=== PATIENT | male | born 1980 | race Caucasian/White ===

== ENCOUNTER 2017-08-09 05:45 | Day surgery (SDC) | payer BC ==
[~2017-08-09] VITALS: Ht 182.9 cm; Wt 115.7 kg
[2017-08-09] MEDS ORDERED: SUCCINYLCHOLINE CHLORIDE 20 MG/ML(QUELICIN) IVP ONE (07:10)
[2017-08-09] MEDS ORDERED: ePHEDrine sulfate 50 MG/ML VIAL IVP ONE (07:10)
[2017-08-09] MEDS ORDERED: ROCURONIUM BROMIDE 10 MG/ML (ZEMURON) IV ONE (07:10)
[2017-08-09] MEDS ORDERED: OXYMETAZOLINE HCL 0.05% NASAL SPRAY NS ONE (07:10)
[2017-08-09] MEDS ORDERED: NEOSTIGMINE METHYLSULFATE 1 MG/ML, 10 ML VIAL IVP ONE (07:10)
[2017-08-09] MEDS ORDERED: SEVOFLURANE 15 MIN GAS INH ONE (07:10)
[2017-08-09] MEDS ORDERED: EPINEPHrine 1 MG/ML AMP IV ONE (07:10)
[2017-08-09] MEDS ORDERED: LR 1,000 ML IV.SOLN IV ONE (07:10)
[2017-08-09] MEDS ORDERED: GLYCOPYRROLATE 0.2 MG/ML VIAL IJ ONE (07:10)
[2017-08-09] MEDS ORDERED: fentaNYL CITRATE 250 MCG/5 ML AMP IV ONE (07:10)
[2017-08-09] MEDS ORDERED: LIDOCAINE 1% 10 MG/ML, 20 ML MDV INJ ONE (07:10)
[2017-08-09] MEDS ORDERED: LIDOCAINE/EPI 1% 1:100000 20 ML VIAL INJ ONE (07:10)
[2017-08-09] MEDS ORDERED: PROPOFOL 200MG/ 20ML VIAL (DIPRIVAN) IV ONE (07:10)
[2017-08-09] MEDS ORDERED: MUPIROCIN 2% TOPICAL OINTMENT 22 GM TP ONE (07:10)
[2017-08-09] MEDS ORDERED: MEPERIDINE HCL/PF 100 MG/ML AMP IM ONE (07:10)
[2017-08-09] MEDS ORDERED: NS 1000 ML BAG IV ONE (07:10)
[2017-08-09] MEDS ORDERED: ONDANSETRON HCL 4 MG/2 ML VIAL IVP ONE ×2 (07:10→10:45)
[2017-08-09] MEDS ORDERED: WATER FOR IRRIGATION,STERILE 1,000 ML IRRIG.SOLN IR ONE (07:10)
[2017-08-09] MEDS ORDERED: DEXAMETHASONE SOD PHOSPHATE 4 MG/ML VIAL IVP ONE (07:10)
[2017-08-09] MEDS ORDERED: NS IRRIG SOLN 1000 ML IR ONE (07:10)
[2017-08-09] MEDS ORDERED: MIDAZOLAM HCL 5 MG/5 ML VIAL IVP ONE (07:10)
[2017-08-09] MEDS ORDERED: MEPERIDINE HCL/PF 25 MG/ML DISP.SYRIN IVP PRN (09:15)
[2017-08-09] MEDS ORDERED: HYDROmorphone 1 MG INJ. 1 MG/ML AMPUL IVP PRN (09:15)
[2017-08-09] MEDS ORDERED: MIDAZOLAM HCL 5 MG/5 ML VIAL IVP PRN (09:15)
[2017-08-09] MEDS ORDERED: NALOXONE HCL 0.4 MG/ML AMP (NARCAN) IVP ONE (09:15)
[2017-08-09] MEDS ORDERED: fentaNYL CITRATE/PF 100 MCG/2 ML AMP IVP PRN (09:15)
[2017-08-09] MEDS ORDERED: HYDROmorphone 1 MG INJ. 1 MG/ML AMPUL ONE (10:36)
[2017-08-09] MEDS: fentaNYL CITRATE/PF 100 MCG/2 ML AMP ONE ×2 (10:45→10:50)
[2017-08-09] MEDS ORDERED: HYDROcodone/ACETAMIN 5-325 MG TAB (NORCO/ VICODIN) ONE (11:58)
[2017-08-09] MEDS ORDERED: HYDROcodone/ACETAMIN 5-325 MG TAB (NORCO/ VICODIN) PO ONE ×2 (12:00→12:30)
[2017-08-09] MEDS ORDERED: ONDANSETRON HCL 4 MG/2 ML VIAL ONE (13:42)
[2017-08-09 14:45] VITALS: BP_SYST 124
== END 2017-08-09 15:30 | disposition home or self-care (01) ==
LOC: SDS 05:45 → SMU 05:45 → SDS 15:30
PROVIDERS: ATTEND Otolaryngology
DX: J34.2 Deviated nasal septum (principal); J34.89 Other specified disorders of nose and nasal sinuses; J33.9 Nasal polyp, unspecified; Z68.32 Body mass index [BMI] 32.0-32.9, adult; D38.5 Neoplasm of uncertain behavior of other respiratory organs; M54.5 Low back pain; J30.1 Allergic rhinitis due to pollen; E66.9 Obesity, unspecified; J44.9 Chronic obstructive pulmonary disease, unspecified
CPT/HCPCS: 30140; 30520; 31255; 31256; 31297; 88305; 88311; C1726; J0171; J0330; J1100; J1170; J2001; J2175; J2250; J2405; J2704; J2710; J3010 ×2; J3490; J7030; J7120